=== PATIENT | female | born 1965 | race African-American/Black ===

== ENCOUNTER → 2019-11-12 | Outpatient (CLI) | payer OTHER ==
--- NOTE | 2019-11-12 13:19 | Diagnostic Imaging Report ---
EXAMINATION: CHEST 2 VIEWS INDICATION: Pre-operative COMPARISON: None FINDINGS: LINES/TUBES:Left IJ tunneled hemodialysis catheter terminates in the superior vena cava. LUNGS:The lungs are well-inflated. No focal consolidation or pulmonary edema. PLEURA:No pleural effusion or pneumothorax. MEDIASTINUM:The cardiomediastinal silhouette appears normal in size and shape. Atherosclerotic calcifications of the thoracic aorta. BONES/SOFT TISSUES:No acute osseous injury. ABDOMEN:No free air under the diaphragm. IMPRESSION: No focal pneumonia or pulmonary edema. Signed by: Nguyen Cardozo MD on 11/12/2019 1:15 PM
--- NOTE | 2019-11-12 13:20 | Diagnostic Imaging Report ---
Exam: KUB - 2 views Indication: Pressure ulcer Comparison: None Findings: Nonobstructive bowel gas pattern. No free air. No acute osseous injury. No specific radiographic findings of osteomyelitis. Atherosclerotic arterial calcifications. Impression: No acute osseous injury or specific radiographic evidence of osteomyelitis. Nonobstructive bowel gas pattern. Signed by: Nguyen Cardozo MD on 11/12/2019 1:17 PM
--- NOTE | 2019-11-12 13:25 | Diagnostic Imaging Report ---
ADDENDUM #1 Addendum made at the request of Dr. Iyer following discussion of the patient's clinical background at 5:30PM on 11/17/2019. In the subcutaneous soft tissues of the right and left calf, more notably anteriorly than posteriorly, there are vague subcutaneous calcifications which are nonspecific but could be seen in the setting of clinically suspected calciphylaxis. No such calcifications are evident on the remaining imaged portions of the upper legs or abdomen. The above findings were discussed with Dr. Iyer on 11/17/2019 5:31 PM, who responded indicating that the communication was understood. Signed by: Nguyen Cardozo MD on 11/17/2019 5:33 PM ORIGINAL REPORT EXAMINATION: FEMUR TWO VIEW MINIMUM RIGHT, FEMUR 2 VIEWS MINIMUM LEFT, LOWER LEG LEFT, LOWER LEG RIGHT, FOOT LEFT AP LAT, FOOT RIGHT AP LAT INDICATION: Soft tissue wound COMPARISON: None FINDINGS: Right femur: No acute fracture or dislocation. Alignment is anatomic. Soft tissues appear unremarkable. Atherosclerotic arterial calcifications. Left femur: No acute fracture or dislocation. Alignment is anatomic. Soft tissues appear unremarkable. Atherosclerotic arterial calcifications. Right Tibia/Fibula: No acute fracture or dislocation. Alignment is anatomic. Soft tissues appear unremarkable. Atherosclerotic arterial calcifications. Left Tibia/Fibula: No acute fracture or dislocation. Alignment is anatomic. Soft tissues appear unremarkable. Atherosclerotic arterial calcifications. Right Foot: No acute fracture or dislocation. Alignment is anatomic. Mild diffuse soft tissue swelling. Atherosclerotic arterial calcifications. Left Foot: No acute fracture or dislocation. Alignment is anatomic. Mild diffuse soft tissue swelling. Atherosclerotic arterial calcifications. IMPRESSION: No acute osseous injury. No specific radiographic evidence of osteomyelitis. Signed by: Nguyen Cardozo MD on 11/12/2019 1:22 PM
== END ==
LOC: RAD 11:53
PROVIDERS: ATTEND Family Medicine Adult Medicine
DX: L89.893 Pressure ulcer of other site, stage 3 (principal); L89.892 Pressure ulcer of other site, stage 2; Z01.810 Encounter for preprocedural cardiovascular examination
CPT/HCPCS: 71046; 74018

== ENCOUNTER → 2019-11-23 | Outpatient (CLI) | payer OTHER | LOC: RAD 10:00 | PROVIDERS: ATTEND Family Medicine Adult Medicine | DX: L89.893 Pressure ulcer of other site, stage 3 (principal); L89.892 Pressure ulcer of other site, stage 2; Z01.810 Encounter for preprocedural cardiovascular examination | CPT/HCPCS: 82784; 82785; 86021; 86039; 86431; 93005; 93306 ==

== ENCOUNTER → 2019-11-25 | Outpatient (RCR) | payer OTHER ==
[~2019-11-25] MED LIST: FLUOCINONIDE 0.05% 1 EA/15 GM TUBE ONE; LIDOCAINE VISC 2% SOLN 15 ML UDC ONE
== END ==
LOC: WCC 11-11 10:53
PROVIDERS: ATTEND Family Medicine Adult Medicine
DX: S31.104A Unspecified open wound of abdominal wall, left lower quadrant without penetration into peritoneal cavity, initial encounter (principal); S71.102A Unspecified open wound, left thigh, initial encounter; L98.8 Other specified disorders of the skin and subcutaneous tissue; I73.9 Peripheral vascular disease, unspecified; I73.89 Other specified peripheral vascular diseases; L99 Other disorders of skin and subcutaneous tissue in diseases classified elsewhere; N18.6 End stage renal disease; I10 Essential (primary) hypertension; E83.59 Other disorders of calcium metabolism; D50.8 Other iron deficiency anemias; E66.01 Morbid (severe) obesity due to excess calories; I48.21 Permanent atrial fibrillation; J45.909 Unspecified asthma, uncomplicated; Z01.810 Encounter for preprocedural cardiovascular examination
CPT/HCPCS: 87071; 87075; 87186; 87205

== ENCOUNTER 2019-12-23 14:02 | Outpatient (RCR) | payer OTHER | END 2019-12-26 | LOC: WCC 14:02 | PROVIDERS: ATTEND Family Medicine Adult Medicine | DX: S31.109A Unspecified open wound of abdominal wall, unspecified quadrant without penetration into peritoneal cavity, initial encounter (principal); S71.102A Unspecified open wound, left thigh, initial encounter; I73.9 Peripheral vascular disease, unspecified; I73.89 Other specified peripheral vascular diseases; L99 Other disorders of skin and subcutaneous tissue in diseases classified elsewhere; L98.8 Other specified disorders of the skin and subcutaneous tissue; N18.6 End stage renal disease; I10 Essential (primary) hypertension; I48.21 Permanent atrial fibrillation; J45.909 Unspecified asthma, uncomplicated; B95.2 Enterococcus as the cause of diseases classified elsewhere; E83.59 Other disorders of calcium metabolism; D50.8 Other iron deficiency anemias; E66.01 Morbid (severe) obesity due to excess calories; Z01.810 Encounter for preprocedural cardiovascular examination ==

== ENCOUNTER 2020-01-18 13:51 | Outpatient (RCR) | payer OTHER ==
[~2020-01-18 13:51] MED LIST changes: -FLUOCINONIDE 0.05% 1 EA/15 GM TUBE ONE; +LIDOCAINE/PRILOCAINE 2.5-2.5% KIT ONE
[2020-01-18] MEDS ORDERED: LIDOCAINE/PRILOCAINE 2.5-2.5% KIT ONE (14:50)
== END 2020-01-25 ==
LOC: WCC 13:51
PROVIDERS: ATTEND Family Medicine Adult Medicine
DX: S31.109A Unspecified open wound of abdominal wall, unspecified quadrant without penetration into peritoneal cavity, initial encounter (principal); S71.102A Unspecified open wound, left thigh, initial encounter; I73.9 Peripheral vascular disease, unspecified; I73.89 Other specified peripheral vascular diseases; L99 Other disorders of skin and subcutaneous tissue in diseases classified elsewhere; L98.8 Other specified disorders of the skin and subcutaneous tissue; E83.59 Other disorders of calcium metabolism; N18.6 End stage renal disease; I10 Essential (primary) hypertension; B95.2 Enterococcus as the cause of diseases classified elsewhere; D50.8 Other iron deficiency anemias; E66.01 Morbid (severe) obesity due to excess calories; I48.21 Permanent atrial fibrillation; J45.909 Unspecified asthma, uncomplicated; Z01.810 Encounter for preprocedural cardiovascular examination
CPT/HCPCS: 87071; 87075; 87186; 87205

== ENCOUNTER 2020-11-23 15:49 | Outpatient (RCR) | payer OTHER | END 2020-11-24 | LOC: WCC 15:49 | PROVIDERS: ATTEND Family Medicine Adult Medicine | DX: S61.208A Unspecified open wound of other finger without damage to nail, initial encounter (principal); I73.89 Other specified peripheral vascular diseases; I10 Essential (primary) hypertension; N18.6 End stage renal disease; I48.21 Permanent atrial fibrillation; D50.8 Other iron deficiency anemias; J45.909 Unspecified asthma, uncomplicated; E66.01 Morbid (severe) obesity due to excess calories; W26.0XXA Contact with knife, initial encounter; Z01.810 Encounter for preprocedural cardiovascular examination | CPT/HCPCS: 87071; 87075; 87205 ==

== ENCOUNTER 2020-11-30 15:00 | Outpatient (RCR) | payer OTHER ==
[2020-11-30] MEDS ORDERED: LIDOCAINE/PRILOCAINE 2.5-2.5% KIT ONE (16:17)
== END 2020-12-25 ==
LOC: WCC 15:00
PROVIDERS: ATTEND Family Medicine Adult Medicine
DX: S61.208A Unspecified open wound of other finger without damage to nail, initial encounter (principal); I73.89 Other specified peripheral vascular diseases; D50.8 Other iron deficiency anemias; N18.6 End stage renal disease; E66.01 Morbid (severe) obesity due to excess calories; I10 Essential (primary) hypertension; I48.21 Permanent atrial fibrillation; J45.909 Unspecified asthma, uncomplicated; W26.0XXA Contact with knife, initial encounter; Z01.810 Encounter for preprocedural cardiovascular examination

== ENCOUNTER 2022-02-11 10:58 | Outpatient (RCR) | payer OTHER ==
[2022-02-11] MEDS ORDERED: LIDOCAINE VISC 2% SOLN 15 ML UDC ONE (12:19)
[2022-02-13] MEDS ORDERED: ELIQUIS5 MG PO (16:43)
[2022-02-13] MEDS ORDERED: CALCET TABLET1 EACH PO (16:43)
[2022-02-13] MEDS ORDERED: PERCOCET 10-321 EACH PO (16:43)
[2022-02-13] MEDS ORDERED: METOPROLOL TAR100 MG PO (16:43)
[2022-02-14] MEDS ORDERED: RENVELA800 MG PO (09:11)
[2022-02-14] MEDS ORDERED: ATORVASTATIN CA20 MG PO (09:11)
[2022-02-14] MEDS ORDERED: SENSIPAR30 MG PO (09:12)
[2022-02-22] MEDS ORDERED: CIPRO500 MG PO (04:55)
[2022-02-22] MEDS ORDERED: DOXYCYCLINE HY100 MG PO (04:55)
[2022-02-22] MEDS ORDERED: ELIQUIS2.5 MG PO (04:57)
[2022-02-22] MEDS ORDERED: PLAVIX75 MG PO (04:58)
== END 2022-02-24 ==
LOC: WCC 10:58
PROVIDERS: ATTEND Internal Medicine Infectious Disease
DX: S61.202A Unspecified open wound of right middle finger without damage to nail, initial encounter (principal); S91.105A Unspecified open wound of left lesser toe(s) without damage to nail, initial encounter; I73.89 Other specified peripheral vascular diseases; N18.6 End stage renal disease; I10 Essential (primary) hypertension; I48.21 Permanent atrial fibrillation; D50.8 Other iron deficiency anemias; J45.909 Unspecified asthma, uncomplicated; E66.01 Morbid (severe) obesity due to excess calories; W26.0XXA Contact with knife, initial encounter; Z01.810 Encounter for preprocedural cardiovascular examination

== ENCOUNTER 2022-02-12 20:05 | Inpatient (IN) | payer OTHER ==
[~2022-02-12] VITALS: Ht 162.6 cm; Wt 91.6 kg
[2022-02-13 00:25] LABS: BASOPHILS % 0.6 % (0.0-1.0); EOSINOPHILS # (AUTO) 0.2 (0.0-0.4); EOSINOPHILS % 3.2 % (0.0-6.0); HEMATOCRIT 31.3 % (34.2-44.1); HEMOGLOBIN 9.8 g/dL (12.0-16.0); LYMPHOCYTES # (AUTO) 1.1 (1.0-3.2); LYMPHOCYTES % 21.2 % (18.0-39.1); MEAN CORPUSCULAR HEMOGLOBIN 30.1 pg (28-32); MEAN CORPUSCULAR HGB CONC 31.3 g/dL (31-35); MONOCYTES # (AUTO) 0.7 (0.2-0.8); NEUTROPHILS % 60.6 % (38.7-80.0); PLATELET COUNT 120 x10e3/uL (140-360); RED BLOOD COUNT 3.26 x10e6/uL (3.6-5.1); RED CELL DISTRIBUTION WIDTH 15.7 % (11.7-14.4)
[2022-02-13] MEDS ORDERED: OXYCODONE/ACETAMINOPHEN 5-325 1 EACH TABLET PO STA ×2 (01:24→08:04)
[2022-02-13 01:45] LABS: ALBUMIN 2.7 g/dL (3.5-5.0); ALBUMIN/GLOBULIN RATIO 0.5 (0.8-2.0); ANION GAP 20.8 mmol/L (8-16); CREATININE, SERUM 11.88 mg/dL (0.57-1.11); POTASSIUM 3.8 mmol/L (3.5-5.1)
[2022-02-13 01:47] LABS: CALCIUM 6.6 mg/dL (8.4-10.2)
[2022-02-13] MEDS ORDERED: Vancomycin IV 1 GM in SODIUM CHLORIDE 0.9% 250ML 250 ML IV ONE (02:00)
[2022-02-13] MEDS ORDERED: DEXTROSE 50% SYRINGE 50 ML IV PRN (02:00)
[2022-02-13] MEDS ORDERED: ONDANSETRON HCL INJ 2MG/ML 2ML 2 MG/ML VIAL IV PRN (02:00)
[2022-02-13] MEDS ORDERED: Vancomycin IV 1 GM VIAL ONE (02:43)
[2022-02-13] MEDS ORDERED: CEFEPIME HCL 1 GM VIAL ONE (02:43)
[2022-02-13] MEDS ORDERED: SODIUM CHLORIDE 0.9% 250ML 250 ML ONE (02:43)
[2022-02-13] MEDS: INSULIN REGULAR, HUMAN 100 UNIT/1 ML SQ SCH ×3 (07:30→16:30)
[2022-02-13] MEDS ORDERED: SEVELAMER CARBONATE 800 MG TAB PO SCH (08:15)
[2022-02-13] MEDS: Morphine 4mg INJECTION 4 MG/ML INJ IV PRN ×4 (08:30→15:40)
[2022-02-13 15:55] VITALS: BP 136/63
[2022-02-13 16:08] VITALS: BP 136/63
[2022-02-13] MEDS ORDERED: PERCOCET 10-321 EACH PO (16:43)
[2022-02-13] MEDS ORDERED: METOPROLOL TAR100 MG PO (16:43)
[2022-02-13] MEDS ORDERED: CALCET TABLET1 EACH PO (16:43)
[2022-02-13] MEDS ORDERED: ELIQUIS5 MG PO (16:43)
[2022-02-13 17:00] LABS: ANION GAP 22.2 mmol/L (8-16); CREATININE, SERUM 12.28 mg/dL (0.57-1.11); POTASSIUM 4.2 mmol/L (3.5-5.1)
[2022-02-13 17:02] LABS: CALCIUM 6.8 mg/dL (8.4-10.2)
[2022-02-13] MEDS ORDERED: OXYCODONE/ACETAMINOPHEN 5-325 1 EACH TABLET PO PRN (19:00)
[2022-02-13] MEDS ORDERED: OXYCODONE/ACETAMINOPHEN 5-325 1 EACH TABLET PO ONE (19:50)
[2022-02-13] MEDS: OXYCODONE/ACETAMINOPHEN 5-325 1 EACH TABLET PO PRN (19:52)
[2022-02-13 19:55] VITALS: BP 134/77
[2022-02-13 20:01] VITALS: BP 134/77
[2022-02-13 23:48] VITALS: BP 117/53
[2022-02-14] VITALS (7 sets, daily range): BP systolic 102–133; BP diastolic 41–108
[2022-02-14] MEDS ORDERED: SODIUM CHLORIDE 0.9% 250ML 250 ML ONE (01:15)
[2022-02-14] MEDS: Morphine 4mg INJECTION 4 MG/ML INJ IV PRN ×5 (01:33→20:27)
[2022-02-14] MEDS: OXYCODONE/ACETAMINOPHEN 5-325 1 EACH TABLET PO PRN ×3 (04:40→22:33)
[2022-02-14 06:41] LABS: BASOPHILS % 0.7 % (0.0-1.0); EOSINOPHILS # (AUTO) 0.1 (0.0-0.4); EOSINOPHILS % 2.9 % (0.0-6.0); HEMATOCRIT 27.6 % (34.2-44.1); HEMOGLOBIN 8.8 g/dL (12.0-16.0); LYMPHOCYTES # (AUTO) 0.6 (1.0-3.2); LYMPHOCYTES % 15.6 % (18.0-39.1); MEAN CORPUSCULAR HEMOGLOBIN 30.3 pg (28-32); MEAN CORPUSCULAR HGB CONC 31.9 g/dL (31-35); MEAN CORPUSCULAR VOLUME 95.2 fL (81-99); MONOCYTES # (AUTO) 0.7 (0.2-0.8); MONOCYTES % 17.3 % (4.4-11.3); NEUTROPHILS # (AUTO) 2.6 (2.1-6.9); PLATELET COUNT 112 x10e3/uL (140-360); RED CELL DISTRIBUTION WIDTH 14.7 % (11.7-14.4)
[2022-02-14 07:12] LABS: ALBUMIN 2.5 g/dL (3.5-5.0); ALBUMIN/GLOBULIN RATIO 0.5 (0.8-2.0); ALKALINE PHOSPHATASE 272 IU/L (40-150); BLOOD UREA NITROGEN 20 mg/dL (7-26); BUN/CREATININE RATIO 3 (6-25); CALCIUM 8.2 mg/dL (8.4-10.2); CARBON DIOXIDE 29 mmol/L (22-29); CHLORIDE 100 mmol/L (98-107); CREATININE, SERUM 7.04 mg/dL (0.57-1.11); GLUCOSE 92 mg/dL (74-118); SODIUM 139 mmol/L (136-145)
[2022-02-14 07:13] LABS: ALANINE AMINOTRANSFERASE < 6 IU/L (0-55)
[2022-02-14] MEDS: CALCIUM CARBONATE 500 MG CHEWABLE TABS PO SCH ×2 (09:00→17:00)
[2022-02-14] MEDS ORDERED: ATORVASTATIN CA20 MG PO (09:11)
[2022-02-14] MEDS ORDERED: RENVELA800 MG PO (09:11)
[2022-02-14] MEDS ORDERED: SENSIPAR30 MG PO (09:12)
[2022-02-14] MEDS ORDERED: ONDANSETRON HCL 4 MG ORAL DISINTEGRATING TAB PO PRN (10:30)
[2022-02-14] MEDS: SEVELAMER CARBONATE 800 MG TAB PO SCH ×2 (12:24→17:00)
[2022-02-14] MEDS: ATORVASTATIN 20 MG TAB PO SCH (20:30)
[2022-02-14] MEDS ORDERED: CINACALCET 30 MG TAB PO SCH (21:00)
[2022-02-14] MEDS: METOPROLOL TARTRATE 50 MG TAB PO SCH (21:00)
[2022-02-15] MEDS: Morphine 4mg INJECTION 4 MG/ML INJ IV PRN ×4 (01:57→17:14)
[2022-02-15 04:09] VITALS: BP 108/60
[2022-02-15 06:37] LABS: ANION GAP 18.8 mmol/L (8-16); CREATININE, SERUM 8.39 mg/dL (0.57-1.11); POTASSIUM 4.8 mmol/L (3.5-5.1)
[2022-02-15 08:19] VITALS: BP 135/64
[2022-02-15] MEDS: SEVELAMER CARBONATE 800 MG TAB PO SCH ×3 (08:54→16:44)
[2022-02-15] MEDS: CALCIUM CARBONATE 500 MG CHEWABLE TABS PO SCH ×3 (08:55→17:00)
[2022-02-15] MEDS: OXYCODONE/ACETAMINOPHEN 5-325 1 EACH TABLET PO PRN (08:56)
[2022-02-15 12:32] VITALS: BP 123/61
[2022-02-15] MEDS ORDERED: FLUCONAZOLE 100 MG TAB PO ONE (13:15)
[2022-02-15 13:58] VITALS: BP 135/64
[2022-02-15 16:00] VITALS: BP 120/54
[2022-02-15] MEDS: METOPROLOL TARTRATE 50 MG TAB PO SCH (16:45)
[2022-02-15] MEDS: SODIUM THIOSULFATE 100 ML IV SCH (18:31)
[2022-02-15 20:00] VITALS: BP 108/71
[2022-02-15] MEDS: ATORVASTATIN 20 MG TAB PO SCH (21:58)
[2022-02-16] VITALS (9 sets, daily range): BP systolic 100–150; BP diastolic 38–71
[2022-02-16] MEDS: Morphine 4mg INJECTION 4 MG/ML INJ IV PRN ×4 (00:08→20:23)
[2022-02-16] MEDS: OXYCODONE/ACETAMINOPHEN 5-325 1 EACH TABLET PO PRN ×3 (02:35→22:16)
[2022-02-16] MEDS: SEVELAMER CARBONATE 800 MG TAB PO SCH ×3 (08:03→16:29)
[2022-02-16] MEDS: CINACALCET 30 MG TAB PO SCH (08:03)
[2022-02-16] MEDS ORDERED: SODIUM CHLORIDE 0.9% 1000ML 2,000 ML ONE (08:49)
[2022-02-16] MEDS ORDERED: SODIUM THIOSULFATE IV ONE (09:45)
[2022-02-16] MEDS ORDERED: SODIUM CHLORIDE 0.9% IV ONE (09:45)
[2022-02-16] MEDS ORDERED: FLUCONAZOLE 100 MG TAB PO NR (12:30)
[2022-02-16] MEDS: ATORVASTATIN 20 MG TAB PO SCH (20:22)
[2022-02-16] MEDS: METOPROLOL TARTRATE 50 MG TAB PO SCH (20:22)
[2022-02-17] VITALS (8 sets, daily range): BP systolic 107–142; BP diastolic 46–91
[2022-02-17] MEDS: Morphine 4mg INJECTION 4 MG/ML INJ IV PRN ×6 (00:30→22:32)
[2022-02-17] MEDS: CINACALCET 30 MG TAB PO SCH (07:44)
[2022-02-17] MEDS: SEVELAMER CARBONATE 800 MG TAB PO SCH ×3 (07:44→16:20)
[2022-02-17] MEDS: OXYCODONE/ACETAMINOPHEN 5-325 1 EACH TABLET PO PRN ×2 (07:45→16:20)
[2022-02-17] MEDS ORDERED: Morphine 2mg Syringe 2 MG/ML SYR ONE (09:20)
[2022-02-17] MEDS: ATORVASTATIN 20 MG TAB PO SCH (21:48)
[2022-02-17] MEDS: METOPROLOL TARTRATE 50 MG TAB PO SCH (21:49)
[2022-02-18] VITALS (10 sets, daily range): BP systolic 110–149; BP diastolic 54–99
[2022-02-18] MEDS: OXYCODONE/ACETAMINOPHEN 5-325 1 EACH TABLET PO PRN ×3 (00:39→22:29)
[2022-02-18] MEDS: Morphine 4mg INJECTION 4 MG/ML INJ IV PRN ×4 (03:58→20:07)
[2022-02-18] MEDS: SEVELAMER CARBONATE 800 MG TAB PO SCH ×3 (08:00→17:07)
[2022-02-18] MEDS ORDERED: SODIUM CHLORIDE 0.9% 1000ML 2,000 ML ONE (08:28)
[2022-02-18] MEDS: CINACALCET 30 MG TAB PO SCH (09:07)
[2022-02-18] MEDS: SODIUM THIOSULFATE 100 ML IV SCH (13:45)
[2022-02-18] MEDS ORDERED: EPOETIN ALFA-EPBX 10,000 UNIT/ML VIAL SC SCH (17:00)
[2022-02-18] MEDS: METOPROLOL TARTRATE 50 MG TAB PO SCH (20:06)
[2022-02-18] MEDS: ATORVASTATIN 20 MG TAB PO SCH (20:07)
[2022-02-19] VITALS (7 sets, daily range): BP systolic 105–139; BP diastolic 59–98
[2022-02-19] MEDS: Morphine 4mg INJECTION 4 MG/ML INJ IV PRN ×6 (00:15→20:50)
[2022-02-19 05:55] LABS: BASOPHILS % 0.7 % (0.0-1.0); EOSINOPHILS # (AUTO) 0.1 (0.0-0.4); EOSINOPHILS % 1.3 % (0.0-6.0); HEMATOCRIT 24.6 % (34.2-44.1); HEMOGLOBIN 7.8 g/dL (12.0-16.0); LYMPHOCYTES # (AUTO) 1.3 (1.0-3.2); LYMPHOCYTES % 22.9 % (18.0-39.1); MEAN CORPUSCULAR HEMOGLOBIN 29.9 pg (28-32); MEAN CORPUSCULAR HGB CONC 31.7 g/dL (31-35); MEAN CORPUSCULAR VOLUME 94.3 fL (81-99); MONOCYTES % 18.2 % (4.4-11.3); NEUTROPHILS # (AUTO) 3.1 (2.1-6.9); NEUTROPHILS % 56.7 % (38.7-80.0); PLATELET COUNT 136 x10e3/uL (140-360); RED BLOOD COUNT 2.61 x10e6/uL (3.6-5.1); RED CELL DISTRIBUTION WIDTH 14.6 % (11.7-14.4)
[2022-02-19 06:14] LABS: ALBUMIN 2.3 g/dL (3.5-5.0); ANION GAP 27.8 mmol/L (8-16); CREATININE, SERUM 4.84 mg/dL (0.57-1.11); POTASSIUM 3.8 mmol/L (3.5-5.1)
[2022-02-19] MEDS: OXYCODONE/ACETAMINOPHEN 5-325 1 EACH TABLET PO PRN ×2 (06:30→18:30)
[2022-02-19] MEDS: SEVELAMER CARBONATE 800 MG TAB PO SCH ×3 (08:02→17:00)
[2022-02-19] MEDS: CINACALCET 30 MG TAB PO SCH (08:02)
[2022-02-19] MEDS: ENOXAPARIN 30 MG/0.3 ML SYR SC SCH (17:22)
[2022-02-19] MEDS: ATORVASTATIN 20 MG TAB PO SCH (20:49)
[2022-02-19] MEDS: METOPROLOL TARTRATE 50 MG TAB PO SCH (20:53)
[2022-02-20] VITALS: BP 124/41
[2022-02-20] MEDS: Morphine 4mg INJECTION 4 MG/ML INJ IV PRN ×2 (01:34→20:45)
[2022-02-20 04:00] VITALS: BP 94/71
[2022-02-20 07:57] VITALS: BP 119/71
[2022-02-20 08:00] VITALS: BP 119/71
[2022-02-20] MEDS: SEVELAMER CARBONATE 800 MG TAB PO SCH ×4 (08:00→20:45)
[2022-02-20] MEDS ORDERED: HEPARIN SOD/SOD CHLORIDE 2,000 ML ONE (08:51)
[2022-02-20] MEDS ORDERED: LIDOCAINE HCL 2% LOCAL 20 ML VIAL ONE (08:51)
[2022-02-20] MEDS ORDERED: IOPAMIDOL 300MG/ML 100 ML INFUS..BTL IV ONE ×2 (08:52→10:35)
[2022-02-20] MEDS ORDERED: NITROGLYCERIN/D5W 200 MCG/ML 250 ML ONE (08:52)
[2022-02-20] MEDS ORDERED: SODIUM CHLORIDE 0.9% 1000ML 1,000 ML ONE ×2 (08:53→10:13)
[2022-02-20] MEDS ORDERED: METHYLPREDNISOLONE SOD SUCC 125 MG/2ML VIAL IV ONE (09:00)
[2022-02-20] MEDS ORDERED: DIPHENHYDRAMINE HCL INJ 50 MG/ML VIAL IV ONE (09:00)
[2022-02-20] MEDS: CINACALCET 30 MG TAB PO SCH (09:00)
[2022-02-20] MEDS ORDERED: HEPARIN SOD (PORCINE) 1000 UNIT/ML 30ML ONE (09:06)
[2022-02-20] MEDS ORDERED: METHYLPREDNISOLONE SOD SUCC 125 MG/2ML VIAL ONE (09:07)
[2022-02-20] MEDS ORDERED: DIPHENHYDRAMINE HCL INJ 50 MG/ML VIAL ONE (09:07)
[2022-02-20] MEDS ORDERED: MIDAZOLAM HCL 2 MG/2 ML VIAL ONE ×4 (09:08→10:51)
[2022-02-20] MEDS ORDERED: FENTANYL CITRATE/PF 100MCG/2 ML INJ ONE ×3 (09:08→11:27)
[2022-02-20] MEDS ORDERED: VERAPAMIL HCL 2.5 MG/ML 2 ML VIAL ONE ×3 (10:12→11:16)
[2022-02-20] MEDS ORDERED: HYDRALAZINE HCL 20 MG/ML VIAL ONE (10:27)
[2022-02-20] MEDS ORDERED: CLOPIDOGREL BISULFATE 75 MG TAB ONE (11:50)
[2022-02-20] MEDS ORDERED: ASPIRIN 325 MG TAB ONE (11:51)
[2022-02-20] MEDS: EPOETIN ALFA-EPBX 10,000 UNIT/ML VIAL IV SCH (14:50)
[2022-02-20] MEDS: ENOXAPARIN 30 MG/0.3 ML SYR SC SCH (17:31)
[2022-02-20 19:09] LABS: HEMOGLOBIN 9.9 g/dL (12.0-16.0)
[2022-02-20] MEDS: SODIUM THIOSULFATE 100 ML IV SCH (19:30)
[2022-02-20 20:00] VITALS: BP 108/67
[2022-02-20] MEDS: METOPROLOL TARTRATE 50 MG TAB PO SCH (20:45)
[2022-02-20] MEDS: ATORVASTATIN 20 MG TAB PO SCH (21:00)
[2022-02-21] MEDS: Morphine 4mg INJECTION 4 MG/ML INJ IV PRN ×4 (02:10→18:27)
[2022-02-21 06:08] LABS: BASOPHILS % 0.7 % (0.0-1.0); HEMATOCRIT 27.8 % (34.2-44.1); HEMOGLOBIN 9.2 g/dL (12.0-16.0); LYMPHOCYTES # (AUTO) 0.7 (1.0-3.2); LYMPHOCYTES % 12.7 % (18.0-39.1); MEAN CORPUSCULAR HEMOGLOBIN 31.5 pg (28-32); MEAN CORPUSCULAR HGB CONC 33.1 g/dL (31-35); MEAN CORPUSCULAR VOLUME 95.2 fL (81-99); MONOCYTES # (AUTO) 0.6 (0.2-0.8); MONOCYTES % 11.1 % (4.4-11.3); NEUTROPHILS # (AUTO) 4.2 (2.1-6.9); NEUTROPHILS % 74.6 % (38.7-80.0); PLATELET COUNT 145 x10e3/uL (140-360); RED BLOOD COUNT 2.92 x10e6/uL (3.6-5.1); RED CELL DISTRIBUTION WIDTH 14.9 % (11.7-14.4)
[2022-02-21 06:45] LABS: ANION GAP 26.6 mmol/L (8-16); CALCIUM 8.6 mg/dL (8.4-10.2); CREATININE, SERUM 4.73 mg/dL (0.57-1.11); POTASSIUM 4.6 mmol/L (3.5-5.1)
[2022-02-21 08:06] VITALS: BP 148/61
[2022-02-21] MEDS: PANTOPRAZOLE SOD 40 MG TABEC PO SCH (08:59)
[2022-02-21] MEDS: SEVELAMER CARBONATE 800 MG TAB PO SCH ×3 (08:59→16:37)
[2022-02-21] MEDS: CINACALCET 30 MG TAB PO SCH (09:01)
[2022-02-21 09:35] VITALS: BP 148/61
[2022-02-21] MEDS ORDERED: LIDOCAINE HCL 1% LOCAL INJ 20 ML VIAL ONE (10:23)
[2022-02-21] MEDS ORDERED: SODIUM CHLORIDE 0.9% 250ML 250 ML ONE ×2 (10:23→10:46)
[2022-02-21 10:25] LABS: INR 1.01; PROTHROMBIN TIME 14.2 seconds (11.9-14.5)
[2022-02-21] MEDS ORDERED: FENTANYL CITRATE/PF 100MCG/2 ML INJ ONE (10:46)
[2022-02-21] MEDS ORDERED: MIDAZOLAM HCL 2 MG/2 ML VIAL ONE (10:46)
[2022-02-21] MEDS ORDERED: DIPHENHYDRAMINE HCL INJ 50 MG/ML VIAL ONE (11:43)
[2022-02-21] MEDS ORDERED: IOPAMIDOL 300MG/ML 100 ML INFUS..BTL IV ONE (11:44)
[2022-02-21 12:35] VITALS: BP 109/76
[2022-02-21 16:17] VITALS: BP 114/88
[2022-02-21] MEDS: CIPROFLOXACIN 500 MG TAB PO SCH (16:37)
[2022-02-21] MEDS: ENOXAPARIN 30 MG/0.3 ML SYR SC SCH (16:38)
[2022-02-21] MEDS ORDERED: DOXYCYCLINE HYCLATE TABLET 100 MG TAB PO SCH (17:00)
[2022-02-21 20:00] VITALS: BP 149/93
[2022-02-21] MEDS: ATORVASTATIN 20 MG TAB PO SCH (20:52)
[2022-02-21] MEDS: METOPROLOL TARTRATE 50 MG TAB PO SCH (20:53)
[2022-02-21] MEDS ORDERED: DIPHENHYDRAMINE HCL 25 MG CAP PO PRN (21:00)
[2022-02-21] MEDS ORDERED: DIPHENHYDRAMINE HCL INJ 50 MG/ML VIAL IV ONE (21:00)
[2022-02-21] MEDS: TRAMADOL HCL 50 MG TAB PO PRN (21:03)
[2022-02-22] VITALS (7 sets, daily range): BP systolic 111–157; BP diastolic 48–78
[2022-02-22] MEDS: Morphine 4mg INJECTION 4 MG/ML INJ IV PRN ×4 (00:08→15:51)
[2022-02-22] MEDS ORDERED: DOXYCYCLINE HY100 MG PO (04:55)
[2022-02-22] MEDS ORDERED: CIPRO500 MG PO (04:55)
[2022-02-22] MEDS ORDERED: ELIQUIS2.5 MG PO (04:57)
[2022-02-22] MEDS ORDERED: PLAVIX75 MG PO (04:58)
[2022-02-22] MEDS: CINACALCET 30 MG TAB PO SCH (08:16)
[2022-02-22] MEDS: CIPROFLOXACIN 500 MG TAB PO SCH (08:16)
[2022-02-22] MEDS: PANTOPRAZOLE SOD 40 MG TABEC PO SCH (08:17)
[2022-02-22] MEDS: SEVELAMER CARBONATE 800 MG TAB PO SCH ×3 (08:17→15:50)
[2022-02-22] MEDS ORDERED: SODIUM CHLORIDE 0.9% 1000ML 2,000 ML ONE (10:19)
[2022-02-22] MEDS: EPOETIN ALFA-EPBX 10,000 UNIT/ML VIAL IV SCH (11:40)
[2022-02-22] MEDS: TRAMADOL HCL 50 MG TAB PO PRN ×2 (11:40→18:47)
[2022-02-22] MEDS: ENOXAPARIN 30 MG/0.3 ML SYR SC SCH (15:50)
[2022-02-22] MEDS: SODIUM THIOSULFATE 100 ML IV SCH (17:00)
== END 2022-02-22 21:29 | disposition home or self-care (01) | DRG 270 ==
LOC: ER 23:14 → ERHOLD 02-13 04:59 → MED/SURG3 02-13 14:32
PROVIDERS: ADMIT Internal Medicine; ATTEND Internal Medicine
PROC: 5A1D70Z Performance of Urinary Filtration, Intermittent, Less than 6 Hours Per Day (ICD-10-PCS; 2022-02-13)
PROC: 04CQ3ZZ Extirpation of Matter from Left Anterior Tibial Artery, Percutaneous Approach (ICD-10-PCS; principal; 2022-02-20)
PROC: 047Q3Z1 Dilation of Left Anterior Tibial Artery using Drug-Coated Balloon, Percutaneous Approach (ICD-10-PCS; principal; 2022-02-20)
PROC: 0JH63XZ Insertion of Tunneled Vascular Access Device into Chest Subcutaneous Tissue and Fascia, Percutaneous Approach (ICD-10-PCS; 2022-02-21)
PROC: 02HV33Z Insertion of Infusion Device into Superior Vena Cava, Percutaneous Approach (ICD-10-PCS; 2022-02-21)
DX: E11.52 Type 2 diabetes mellitus with diabetic peripheral angiopathy with gangrene (principal); N18.6 End stage renal disease; I96 Gangrene, not elsewhere classified; I13.11 Hypertensive heart and chronic kidney disease without heart failure, with stage 5 chronic kidney disease, or end stage renal disease; E11.22 Type 2 diabetes mellitus with diabetic chronic kidney disease; Z99.2 Dependence on renal dialysis; E11.621 Type 2 diabetes mellitus with foot ulcer; E83.59 Other disorders of calcium metabolism; N25.0 Renal osteodystrophy; Z87.891 Personal history of nicotine dependence; E66.01 Morbid (severe) obesity due to excess calories; Z68.34 Body mass index [BMI] 34.0-34.9, adult; Z88.5 Allergy status to narcotic agent; Z88.0 Allergy status to penicillin; Z88.1 Allergy status to other antibiotic agents; Z91.041 Radiographic dye allergy status; Z91.040 Latex allergy status; D63.1 Anemia in chronic kidney disease; E83.51 Hypocalcemia
CPT/HCPCS: 36005; 36247; 36415; 37228; 37229; 37232; 71045; 74470; 75630; 76937; 77002; 80048; 80053; 82040; 83880; 83970; 84100; 85014; 85018; 85025; 85610; 86706; 87040; 87340; 90962; 93041; 93925; 99152; 99153; 99251; 99285; C1724; C1725; C1757; C1760; C1769; C1887; C1894; J0360; J0692; J1200; J1644; J1650; J2001; J2250; J2270; J2930; J3010; J3370; J7030; J7050; Q0162; Q9967